=== PATIENT | male | born 1995 | race Caucasian/White ===

== ENCOUNTER 2019-04-22 09:02 | Emergency (ER) | payer OTHER, SELFPAY ==
[2019-04-22 09:13] VITALS: BP 131/83; PULSE 87; RESP 16; TEMP 36.6; O2SAT 99
--- NOTE | 2019-04-22 11:49 | ED.NAVMDI ---
HPI - Nausea/Vomiting/Diarrhea General Chief complaint: Nausea/Vomiting/Diarrhea Stated complaint: VOMITING/DIARRHEA Source: patient and RN notes reviewed Mode of arrival: ambulatory Limitations: no limitations History of Present Illness HPI Narrative: The patient, non-smoker/nondrinker, presents with 1/2-week history of headache associated with non-bloody emesis x8 and diarrhea x3. No fever, blood, bile, sick family, foreign travel, recent antibiotics , abdominal pain; symptoms are mild, slightly improved with Imodium OTC. Patient advised location of appendix at the right lower quadrant and to return with worsening or RLQ symptoms Related Data Allergies Allergy/AdvReac Type Severity Reaction Status Date / Time No Known Allergies Allergy Unknown Verified 04/22/19 09:11 Review of Systems Review of Systems: Narrative: The patient has been informed that they may have pre-hypertension or Hypertension based on a BP reading in the department. I recommend that the patient call the primary care provider listed on their discharge instructions or a physician of their choice this week to arrange follow up for further evaluation of possible pre-hypertension or Hypertension General/Constitutional: No weight loss,fever Eyes: N0: Redness,discharge Ears/Nose/Throat: No: Epistaxis,ear discharge Respiratory: Denies: Hemoptysis Gastrointestinal: No Vomiting, Bleeding-rectal Skin: No Lumps, eruption Neurologic: No Focal Weakness,Sz Hematologic: Denies: Petechiae/Purpura Psychiatric: No: Suicida ideationl All Other Systems: Reviewed and Negative FOR[facility], [facility] Family History Family History (Updated 08/06/16 @ 13:07 by DOCTOR UNKNOWN) Mother Patient's mother is in good health Father Patient's father is in good health Social History Social History Smoking status: Never smoker Alcohol intake: current Comments At time of signature, agree with nursing past medical, surgical, social and family history. There is no relevant family history pertinent to the presenting complaint Exam Narrative: Exam Narrative: General Appearance: Well appearing, No distress EYE: PERRLA, Conjunctiva clear Ears: External ear normal Nose: Normal nose Mouth/Throat: Normal appearing, Normal lips Neck: Supple Respiratory: Airway patent, No respiratory distress Cardiovascular: RRR Abdomen: Soft, Non-tender, No massess, No organomegaly (no rebound/ surgical signs), Hyperactive bowel sounds Musculoskeletal: Full ROM Skin: Warm, Dry Neurological: A&O x3, CN II-X intact Psychiatric: Normal mood, Normal affect Course Vital Signs Vital signs: Vital Signs Temperature 97.9 F 04/22/19 09:13 Pulse Rate 87 04/22/19 09:13 Respiratory Rate 16 04/22/19 09:13 Blood Pressure 131/83 04/22/19 09:13 Pulse Oximetry 99 04/22/19 09:13 Temperature 97.9 F 04/22/19 09:13 Pulse Rate 87 04/22/19 09:13 Respiratory Rate 16 04/22/19 09:13 Blood Pressure 131/83 04/22/19 09:13 Pulse Oximetry 99 04/22/19 09:13 Discharge Plan Discharge Clinical Impression: Vomiting and diarrhea Patient Disposition: Home, Self-Care Condition: Stable Instructions: Acute Nausea and Vomiting (ED) Prescriptions: New ondansetron HCl [Zofran] 4 mg tablet 4 mg PO Q8H Qty: 10 RF: 0 diphenoxylate-atropine [Lomotil] 2.5-0.025 mg tablet 1 tablet PO .qod Qty: 10 RF: 0 Follow-up/Referrals: Ramiro Rosales MD [Primary Care Provider] - Stand Alone Forms: Work/School Release IP Discharge Date/Time: 04/22/19 10:32
== END 2019-04-22 10:32 | disposition home or self-care (01) ==
PROVIDERS: Emergency Provider Emergency Medicine; PCP Emergency Medicine
DX: R19.7 Diarrhea, unspecified (principal); R11.10 Vomiting, unspecified
CPT/HCPCS: 99213; G0463